=== PATIENT | female | born 1960 | race Caucasian/White ===

== ENCOUNTER 2025-01-30 08:26 | Day surgery (SDC) | payer OTHER, MEDICARE ==
[2025-01-25 13:35] VITALS: BMI 34.5
[2025-01-30] MEDS ORDERED: ONDANSETRON 4 MG/2 ML VIAL ONE (10:29)
[2025-01-30] MEDS ORDERED: MIDAZOLAM HCL 2 MG/2 ML SINGLE DOSE VIAL ONE (10:29)
[2025-01-30] MEDS ORDERED: BUPIVACAINE HCL/EPINEPHRINE/PF 30 ML VIAL IJ ONE (11:06)
[2025-01-30] MEDS ORDERED: PROPOFOL 20 ML ONE (11:07)
[2025-01-30] MEDS ORDERED: DEXAMETHASONE SOD PHOSPHATE 4 MG/1 ML VIAL ONE (11:37)
[2025-01-30] MEDS ORDERED: VANCOMYCIN 1,000 MG VIAL (RESTRICTED TO ID ONLY) ONE (12:28)
[2025-01-30] MEDS ORDERED: LACTATED RINGERS SOLUTION 1,000 ML IV SCH (13:15)
[2025-01-30] MEDS ORDERED: FENTANYL CITRATE/PF 50 MCG/ML VIAL ONE (13:37)
[2025-01-30] MEDS: ONDANSETRON 4 MG/2 ML VIAL IVPUSH PRN (13:40)
[2025-01-30 14:35] VITALS: RESP 18; TEMP 97.4
[2025-01-30 15:36] VITALS: PULSE 81
[2025-01-30 15:41] VITALS: BP 121/71
== END 2025-01-30 15:35 | disposition home or self-care (01) ==
LOC: FASU 08:26
PROVIDERS: ATTEND Orthopaedic Surgery
PROC: 0MQP0ZZ Repair Left Knee Bursa and Ligament, Open Approach (ICD-10-PCS; principal; 2025-01-30 12:09)
DX: S83.412A Sprain of medial collateral ligament of left knee, initial encounter (principal); X58.XXXA Exposure to other specified factors, initial encounter; Y92.9 Unspecified place or not applicable; Y93.9 Activity, unspecified
CPT/HCPCS: 82962; 94760; C1713